=== PATIENT | male | born 1950 | race Caucasian/White ===

== ENCOUNTER → 2019-04-29 | Day surgery (SDC) | payer MEDICARE, OTHER ==
[~2019-04-29] MED LIST: Buffered Lidocaine 1% SYRIN* 1 ML/SYRINGE INTRADERM ONE; Bupivacaine 0.5% W/EPI SDV* 10 ML VIAL INJ ONE; Dexamethasone IV* 4 MG/ML 1 ML (4 MG) IV SLOW PU ONE; Dexamethasone IV* 4 MG/ML 1 ML (4 MG) ONE; DiMENhydriNATE IV* 50 MG/ML VIAL IV PUSH PRN; DiMENhydriNATE IV* 50 MG/ML VIAL ONE; EPHEDrine (Pressors)* 50 MG/ML VIAL ONE; EPINEPHRINE 1 MG/ML 1 ML VIAL ONE; Famotidine IV* 10 MG/ML 2 ML (20 mg) IV ONE; Famotidine IV* 10 MG/ML 2 ML (20 mg) ONE; Glycopyrrolate IV* 0.2 MG/ML 1 ML VIAL ONE; HYDROcodone/ACETAMIN 5-325 MG* 1 TAB PO PRN; Lactated Ringers 1000 ML Bag* 1,000 ML IV SCH; Lidocaine 2% PF * 5 ML VIAL ONE; Midazolam* 1 MG/ML 2 ML VIAL (2 MG) ONE; Naloxone* 0.4 MG/ML 1 ML VIAL IV PRN; Neostigmine Methylsulfate* 3 MG/3 ML SYRINGE ONE; Ondansetron INJ* 2 MG/ML VIAL ONE; Propofol* 10 MG/ML 20 ML BTL ONE; ROPIVACAINE 5 MG/ML 30 ML BTL (0.5%) ONE; Rocuronium* 10 MG/ML VIAL ONE; Scopolamine 1.5 mg* PATCH ONE; Scopolamine 1.5 mg* PATCH TRANSDERM PRN; Scopolamine PATCH Remove* 1 NOTE MISC PATCH OFF ONE; ceFAZolin 2 GM in NS PREMIX(*) 2 GM/100 ML BAG IVPB ONE; fentaNYL* 50 MCG/ML 2 ML VIAL (100 MCG VIAL) ONE; oxyCODONE/Acetamin 5/325 MG* TAB ONE; oxyCODONE/Acetamin 5/325 MG* TAB PO PRN
[2019-04-29] MEDS: Buffered Lidocaine 1% SYRIN* 1 ML/SYRINGE INTRADERM ONE ×2 (08:51→08:58)
[2019-04-29] MEDS: fentaNYL* 50 MCG/ML 2 ML VIAL (100 MCG VIAL) IV PRN ×2 (14:54→15:27)
[2019-04-29 16:41] VITALS: BP 129/70
--- NOTE | 2019-04-30 23:08 | OP ---
OPERATIVE REPORT: DATE OF OPERATION: 04/29/19 DATE OF : 46 SURGEON: Pa De Los Santos MD FISHER SEAL: SIMONE Penaloza A physician financial administrative assistant was required for the procedure for assistance with patient positioning, retract ion, instrumentation, and closure. ANESTHESIOLOGIST: Dr. Mat Early. ANESTHESIA: General anesthesia, regional interscalene block anesthesia, local anesthesia consisting of 10 cc of Marcaine 0.5% with epinephrine about the open biceps incision site. PRE-OP DIAGNOSES: 1. Left shoulder rotator cuff tendon tear, supraspinatus, full-thickness. 2. Left shoulder subacromial bursitis and impingement. 3. Possible left shoulder biceps tendonitis. 4. History of 2007 left shoulder open subacromial decompression and open distal clavicle resection b y another surgeon. POST-OP DIAGNOSES: 1. Left shoulder rotator cuff tendon tear, supraspinatus, full-thickness. 2. Left shoulder subacromial bursitis and impingement. 3. Left shoulder proximal biceps tendonitis and superior labral tear. 4. History of 2007 left shoulder open subacromial decompression and open distal clavicle resection b y another surgeon. OPERATIVE PROCEDURE: 1. Left shoulder arthroscopic rotator cuff tendon repair using a double-row suture anchor repair, as well as a Regeneten biologic patch. 2. Left shoulder arthroscopic subacromial decompression. 3. Left shoulder open proximal biceps tenodesis, subpectoral. ANTIBIOTICS: Ancef 2 g IV. IV FLUIDS: 1300 cc crystalloid. XUTC-XJ-[id number] TIME: 180 minutes. ARTHROSCOPIC FLUID UTILIZED: Not recorded. SPECIMENS: None. IMPLANTS: Mitek Healix triple loaded anchor, 5.5 mm x1. Mitek Healix knotless anchor 5.5 mm x1. [facility] Regeneten biologic patch, size medium. Arthrex proximal biceps tenodesis unicortical button x1. COMPLICATIONS: None. ESTIMATED BLOOD LOSS: Minimal. INDICATIONS: The patient is a 69-year-old man, left-hand dominant, retired, very active, with a 2007 history of left shoulder open surgery by Dr. Martinez, who presented to me with pain since June, insufficiently responsive to a full spectrum of nonoperative management. The patient opted for surgery. Discussed risks and potential complications of surgery. This include s a rotator cuff tendon retear and failure of healing. The patient requested a Regeneten biologic patch as well during the repair, having read the biologic patch. I thought that this was reasonable given the patient's age. Age higher than 63 has shown a s ignificant decreased rate of successful rotator cuff tendon healing postoperatively. DESCRIPTION OF PROCEDURE: In the preoperative holding, the patient signed informed consent. Operati ve extremity was marked in the preoperative holding. Interscalene nerve block was performed by Gunnar carrillo in the preoperative holding. The patient was taken back to the operating room and placed supine on the operating room table. Nina dillon and intubated. The patient was placed in the lateral decubitus position. Axillary roll. All mary ny prominences padded. Clark bag hardened. Left shoulder placed in 15 pounds of longitudinal tractio n. Appropriately forward flexion and abduction in the right shoulder. Left shoulder was prepped and draped. Formal surgical time-out performed. The glenohumeral joint was entered from posterior with a spinal needle. 30 cc of normal saline was i nfused. The glenohumeral joint was next entered from posterior using a standard incision technique. Diagnostic arthroscopy was commenced. No significant articular cartilage injury. Clear full-thickn ess supraspinatus tendon tear. There appeared to be a superior labral tear and tendinosis to the pro ximal long-head biceps tendon. Anterior glenohumeral joint portal was established using standard technique under direct visualizatio n. Some rotator cuff interval tissue was debrided using arthroscopic shaver. I probed the superior labrum with an arthroscopic probe. Clear unstable labral tear. Given the appearance of the long-head biceps tendon and superior labrum, I decided to cut and reattach the biceps tendon. I used an arthroscopic scissors to cut the biceps near its origin. I debrided some superior labrum w [facility] arthroscopic shaver. Confirmed intact subscapularis. Looked at the supraspinatus. I debrided some of the footprint in th e end of the tendon with an arthroscopic shaver. Removed instruments and fluids from the glenohumeral joint and moved to the subacromial space anterio r and posterior. I made a lateral and posterolateral portals under direct visualization. I debrided some scar tissue and subacromial bursitis with an arthroscopic shaver. The rotator cuff tear was identified. It consisted of much of the supraspinatus more anteriorly base d than posteriorly. I suctioned off the edges with an arthroscopic shaver. A grasper could nicely l ateralize the tendon. I prepared the footprint with a cautery device followed by an arthroscopic bur r. Placed plastic cannulas. I placed 1 medial row anchor for a superolateral stab hole in the skin. The anchor that I placed was triple loaded. I used an antegrade passing device to pass 3 horizontal mattress stitches. I passed all the sutures before tying my 3 horizontal mattress knots. I took ve ry aggressive bites in the tendon. The rotator cuff did come quite as far lateral with my repair as it had when I used a rotator cuff grasper prior to the repair. There was still some prepared bone vi sible lateral to the tendon. I suspect that this was because I just prepared a very long distance of footprint and lateral bone, perhaps even 20 mm prior to my repair. I placed a lateral row 5.5 mm anchor and placed in it 4 sutures from the medial row anchor. My repai r was excellent. Stable with movement and with probing. Excellent cuff of tissue flatly apposed to b one. I next placed the Regeneten biologic patch. I placed it through a lateral portal. I used size medium . I applied it over the site of the repair and over the exposed lateral bone as well. I kept it in place with PLLA resorbable anchors. I also used 1 bone anchor. The Regeneten patch was fixed excell ently. Certainly no movement as I moved the shoulder and visualized arthroscopically. I flattened out the undersurface of the internal aspect of the acromion with an arthroscopic christian. I noted spurs still present about the anteromedial acromion on the acromial side of the AC joint. Thi s is typically an area that I found that open debridements are insufficient. I flattened out nicely the acromion in this location. I debrided the scar tissue from the AC joint with electrocautery. I next removed all instruments and fluid from subacromial space. I closed skin incisions with figure -of-eight and 12 stitches using nylon 3-0 suture. The clark bag was temporarily softened and the patient converted into a near supine position and the b cornelius bag rehardened. The shoulder was slightly abducted. A standard incision was made longitudinally over the anteromedia l upper arm. Dissected down the bicipital groove. Retractors placed. Long head biceps tendon taken from wound. Bicipital groove prepped with periosteal elevator and Bovie. Beath pin placed unicorti jose. FiberLoop suture was used to place 3 stitches in the long-head biceps tendon. The button was loaded. A button was passed unicortically and slipped. A knot was tied. Free needle was used to p lace another tenodesis stitch. Excess tendon and suture was cut with a knife. Irrigation of the wou nd. Subcutaneous tissue was closed with buried simple stitches using Vicryl 3-0 suture. Running stitch us ing Monocryl 3-0 suture was placed in the subcuticular layer. Local anesthetic 10 cc placed about thi s incision. Biceps incision was covered off with Mastisol, Steri-Strips, 4x4, and Tegaderm. Arthroscopic skin inc isions closed with Xeroform, 4x4s, ABDs, foam tape. The patient's shoulder was placed in a sling and an abduction pillow. The patient was awakened, extubated, and taken to the PACU. DISPOSITION: Wound care instructions provided. The patient was given Percocet as needed for pain co ntrol. Aspirin for 2 weeks for DVT prophylaxis given that the patient had a blood clot previously af ter a knee arthroscopy. Keflex for 7 days for infection prophylaxis. The patient will follow up wit h me in clinic 10 to 14 days postoperatively. Sling at all times. No physical therapy until 6 weeks postoperative. [id number]/[facility] #: [id number]
== END | disposition home or self-care (01) ==
LOC: OR 07:50
PROVIDERS: ATTEND Orthopaedic Surgery
DX: S46.012A Strain of muscle(s) and tendon(s) of the rotator cuff of left shoulder, initial encounter (principal); S43.492A Other sprain of left shoulder joint, initial encounter; X58.XXXA Exposure to other specified factors, initial encounter; Y92.9 Unspecified place or not applicable; M75.42 Impingement syndrome of left shoulder; M75.52 Bursitis of left shoulder; M75.22 Bicipital tendinitis, left shoulder; G89.18 Other acute postprocedural pain; E78.5 Hyperlipidemia, unspecified; I48.91 Unspecified atrial fibrillation; Z79.82 Long term (current) use of aspirin; Z87.891 Personal history of nicotine dependence; I77.810 Thoracic aortic ectasia
CPT/HCPCS: A9270-GY; C1713; C1776; J0690; J1100; J1240; J2250; J2405; J2704; J2710; J2795; J3010